=== PATIENT | male | born 1965 | race Caucasian/White ===

== ENCOUNTER 2022-09-08 07:08 | Emergency (ER) | payer MEDICAID ==
[~2022-09-08] VITALS: Ht 182.9 cm; Wt 113.4 kg
--- NOTE | 2022-09-08 07:10 | NUR ---
BIBA TAKEN TO BED 11
[2022-09-08 07:18] VITALS: BP 155/95
--- NOTE | 2022-09-08 07:37 | NUR ---
57/M BIBA FROM HOME. PER EMS PATIENT CALLED 911 C/O 10/10 LOWER ABDOMINAL PAIN AND URINARY FREQUENCY. PATIENT REPORTS RECENT DX OF UTI AND WAS PLACED ON MACROBID, DENIES N/V/D, FEVERS. REPORTS TAKING TRAMADOL THIS MORNING WITH NO RELIEF OF PAIN. URINE APPEARS ORANGE IN COLOR, STATES GAVE UNKNOWN MEDICATION TO AID WITH PAIN.
[2022-09-08] MEDS ORDERED: NACL 0.9% 1,000 ML IV SCH (08:25)
[2022-09-08] MEDS ORDERED: ONDANSETRON 4 MG/2 ML VIAL IVP ONE (08:25)
[2022-09-08] MEDS ORDERED: KETOROLAC 30 MG/ML VIAL IVP ONE (08:25)
[2022-09-08 09:01] LABS: BASOPHILS # (AUTO) 0.1 K/uL (0.00-0.22); BASOPHILS % (AUTO) 1.2 % (0.0-2.0); EOSINOPHILS # (AUTO) 0.1 K/uL (0-0.4); EOSINOPHILS % (AUTO) 1.8 % (0.0-4.0); HEMATOCRIT 45.1 % (36-52); HEMOGLOBIN 15.9 g/dL (12.0-18.0); LYMPHOCYTES # (AUTO) 1.4 K/uL (2.0-11.5); LYMPHOCYTES % (AUTO) 17.5 % (20.5-51.1); MEAN CORPUSCULAR HEMOGLOBIN 30 pg (27-31); MEAN CORPUSCULAR HGB CONC 35 g/dL (33-37); MEAN CORPUSCULAR VOLUME 86.5 fL (80-94); MONOCYTES # (AUTO) 0.5 K/uL (0.8-1.0); MONOCYTES % (AUTO) 6.4 % (1.7-9.3); NEUTROPHILS # (AUTO) 5.7 K/uL (1.8-7.7); NEUTROPHILS % (AUTO) 73.1 % (42.2-75.2); PLATELET COUNT (AUTO) 292 K/uL (140-450); RED BLOOD CELL COUNT(AUTO) 5.22 MIL/uL (4.20-6.10); RED CELL DISTRIBUTION WIDTH 12.7 % (11.6-13.7); WHITE BLOOD COUNT (AUTO) 7.8 K/uL (4.8-10.8)
[2022-09-08 09:06] LABS: APPEARANCE,URINE CLEAR (CLEAR); BILIRUBIN,URINE 1+ (NEGATIVE); BLOOD, URINE 1+ (NEGATIVE); COLOR,URINE ORANGE (YELLOW); LEUKOCYTE ESTERASE ,URINE 2+ (NEGATIVE); NITRITE, URINE POSITIVE (NEGATIVE); UGLUCOSE TRACE (NEGATIVE)
[2022-09-08 09:08] LABS: ALBUMIN 2.8 g/dL (3.4-5.0); ANION GAP 14.8 (8-16); CREATININE 0.9 mg/dL (0.6-1.3); POTASSIUM 3.8 mmol/L (3.5-5.1); TOTAL BILIRUBIN 0.5 mg/dL (0.0-1.0)
[2022-09-08 09:17] LABS: RBC,URINE 0-5 /HPF (0-5); WBC,URINE 60-80 /HPF (0-5)
[2022-09-08] MEDS ORDERED: CIPR500T4 PO (10:35)
[2022-09-08] MEDS ORDERED: IBUP-2213 PO (10:35)
[2022-09-08] MEDS ORDERED: ONDA8TAB87 PO (10:39)
[2022-09-08 11:04] VITALS: BP 108/66
--- NOTE | 2022-09-08 11:04 | NUR ---
IV removed, catheter intact and site benign. Applied folded 4x4 gauze and tape to stop bleeding.
--- NOTE | 2022-09-08 11:04 | NUR ---
Patient discharged with v/s stable. Written and verbal after care instructions ABOUT UTI given and explained. Patient alert, oriented and verbalized understanding of instructions. Ambulatory with steady gait. All questions addressed prior to discharge. ID band removed. Patient advised to follow up with PMD. Rx of CIPROFLOXACIN, IBUPROFEN given. Patient educated on indication of medication including possible reaction and side effects. Opportunity to ask questions provided and answered.
== END 2022-09-08 11:04 | disposition home or self-care (01) ==
LOC: MED 07:08
DX: N39.0 Urinary tract infection, site not specified (principal)
CPT/HCPCS: 36415; 74176; 80053; 81001; 85025; 87086; 96361; 96374; 96375; 99284; J1885; J2405; J7030